=== PATIENT | female | born 1975 | race Caucasian/White ===

== ENCOUNTER 2017-06-05 19:13 | Inpatient (IN) | payer MEDICAID ==
[~2017-06-05] VITALS: Ht 157.5 cm; Wt 88.9 kg
[2017-06-05 23:05] VITALS: BP 108/70
--- NOTE | 2017-06-05 23:05 | NUR ---
RECEIVED REPORT ON PT FROM TRANSPORTERS. PT IN STABLE CONDITION. PT AAOX4, PT ON RA, IV TO L FA 22 G, PATENT AND INTACT INFUSING WELL. SKIN IS INTACT, JUSTICE CATHETER IN PLACE. INITIAL ASSESSMENT COMPLETED. PLAN OF CARE DISCUSSED WITH PT, PT MAINLY SPEAKS HONG KONGER, RESEARCH QUALITY ASSURANCE SPECIALIST USED. PT VERBALIZED UNDERSTANDING. ALL SAFETY PRECAUTIONS MET CALL LIGHT WITHIN REACH, WILL CONTINUE TO MONITOR.
--- NOTE | 2017-06-05 23:30 | NUR ---
DR. CARSON IN TO SEE PT, AT THE BEDSIDE DISCUSSING PLAN OF CARE.
--- NOTE | 2017-06-06 01:30 | NUR ---
CHECKED IN ON PT. PT RESTING COMFORTABLY IN BED. NO S/S OF DISTRESS. CALL LIGHT WITHIN REACH, WILL CONTINUE TO MONITOR.
[2017-06-06] MEDS: PIPERACILLIN/TAZOBACTAM 3.375 GM VIAL IV ONE ×2 (01:36→01:53)
[2017-06-06] MEDS: LACTATED RINGERS 1,000 ML IV SCH ×2 (01:36→09:19)
[2017-06-06] MEDS: PIPER/TAZO 3.375GM/D5W PREMIX 50 ML IV SCH ×4 (01:40→17:01)
--- NOTE | 2017-06-06 03:30 | NUR ---
PT RESTING COMFORTABLY IN BED NO S/S OF DISTRESS NOTED. ALL SAFETY PRECAUTIONS MET, CALL LIGHT WITHIN REACH, WILL CONTINUE TO MONITOR.
[2017-06-06 04:00] VITALS: BP 114/63
--- NOTE | 2017-06-06 04:15 | NUR ---
PT TEMPERATURE TAKEN, PT HAS 100.5 FEVER, PAGED DR. CARSON AWAITING CALL BACK
--- NOTE | 2017-06-06 04:45 | NUR ---
CHECKED IN ON PT, PT RESTING. NO C/O PAIN. ALL SAFETY PRECAUTIONS MET, CALL LIGHT WITHIN REACH, WILL CONTINUE TO MONITOR.
[2017-06-06] MEDS ORDERED: PIPERACILLIN/TAZOBACTAM 3.375 GM VIAL IV ONE (05:42)
[2017-06-06 05:48] LABS: BASOPHILS # (AUTO) 0.1 K/uL (0.00-0.22); BASOPHILS % (AUTO) 0.8 % (0.0-2.0); EOSINOPHILS # (AUTO) 0.3 K/uL (0-0.4); EOSINOPHILS % (AUTO) 1.7 % (0.0-4.0); HEMATOCRIT 32.5 % (36-48); HEMOGLOBIN 10.5 g/dL (12.0-16.0); LYMPHOCYTES % (AUTO) 11.1 % (20.5-51.1); MEAN CORPUSCULAR HEMOGLOBIN 26 pg (27-31); MEAN CORPUSCULAR HGB CONC 32 g/dL (33-37); MEAN CORPUSCULAR VOLUME 80 fL (80-94); MONOCYTES # (AUTO) 1.3 K/uL (0.8-1.0); MONOCYTES % (AUTO) 7.4 % (1.7-9.3); PLATELET COUNT (AUTO) 356 K/uL (140-450); RED BLOOD CELL COUNT(AUTO) 4.09 MIL/uL (4.20-5.40); RED CELL DISTRIBUTION WIDTH 15.3 % (11.6-13.7); WHITE BLOOD COUNT (AUTO) 17.7 K/uL (4.8-10.8)
[2017-06-06] MEDS ORDERED: ACETAMINOPHEN 650 MG/20.3 ML UDC PO PRN (05:55)
--- NOTE | 2017-06-06 05:55 | NUR ---
PAGED AGAIN DR. CARSON THROUGH CELL PHONE ABLE TO MAKE HIM AWARE OF FEVER WITH ORDERS. COOLING MEASURES IN PLACE.
[2017-06-06] MEDS: MORPHINE SULFATE 4 MG/ML SYR IVP PRN ×2 (06:15→13:41)
--- NOTE | 2017-06-06 06:15 | NUR ---
CHECKED IN ON PT. PT STATED SHE IS IN 10/10 PAIN. NEW IV INSERTED ON LEFT HAND 22 G. PREVIOUS IV TO LEFT FA STARTING TO SWELL. PT MEDICATED PER MD ORDERS. ALL SAFETY PRECAUTIONS MET, CALL LIGHT WITHIN REACH.
--- NOTE | 2017-06-06 06:30 | NUR ---
PTS TEMP 99.7 AFTER COOLING MEASURES. WILL CONTINUE TO MONITOR
--- NOTE | 2017-06-06 07:25 | NUR ---
ENDORSED PT IN STABLE CONDITION TO AM NURSE FOR CONTINUITY OF CARE.
--- NOTE | 2017-06-06 07:30 | NUR ---
RECEIVED REPORT FROM PM RN. PT IS A/O X 4. VERBALLY RESPONSIVE. ABLE TO MAKE NEEDS KNOWN. DENIES ANY PAIN OR DISCOMFORT. BILATERAL PERRLA NOTED. PT ON RA SATURATING AT 91%. TOLERATING WELL. SR ON MONITOR. BEDREST. ABLE TO MOVE ALL EXTREMITIES. SKIN IS INTACT. L HAND 22 GAUGE NOTED. INTACT AND PATENT. JUSTICE CATHETER NOTED. DRAINING CLEAR YELLOW URINE. TEMPERATURE AT 99.1 F. CONTINUE COOLING MEASURES. SAFETY PRECAUTION MAINTAINED. BED AT LOWEST SETTING. CALL LIGHT WITHIN REACH. WILL CONTINUE TO MONITOR.
[2017-06-06 08:00] VITALS: BP 103/61
--- NOTE | 2017-06-06 10:00 | NUR ---
PT SLEEPING. AWAKEN TO NAME. A/O X4. VERBALLY RESPONSIVE. DENIES ANY PAIN OR DISCOMFORT. WILL CONTINUE TO MONITOR.
--- NOTE | 2017-06-06 11:23 | NUR ---
PATIENT HAS BEEN SCREENED AND CATEGORIZED HIGH NUTRITION RISK. PATIENT WILL BE SEEN WITHIN 1-2 DAYS OF ADMISSION. 06/06/17-06/07/[address]
--- NOTE | 2017-06-06 11:33 | NUR ---
NOTED TO HAVE MILD FEVER OF 99.4 F. WILL CONTINUE WITH COOLING MEASURES.
[2017-06-06 12:00] VITALS: BP 120/55
[2017-06-06 13:05] LABS: ANION GAP 12.6 (8-16); CARBON DIOXIDE 24.9 mmol/L (21-32); CREATININE 0.5 mg/dL (0.6-1.3); POTASSIUM 3.5 mmol/L (3.5-5.1)
[2017-06-06] MEDS: ACETAMINOPHEN 325 MG TAB PO PRN ×2 (13:07→21:04)
--- NOTE | 2017-06-06 13:07 | NUR ---
PT IS ALERT AND ORIENTED X4. C/O MILD HEADACHE. ORAL TEMPERATURE IS NOW 99.7. PRN TYLENOL ADMINISTERED. TOLERATED WELL. WILL CONTINUE TO MONITOR.
[2017-06-06] MEDS: ALBUTEROL SULFATE/IPRATROPIU 3 ML SOL IH SCH ×3 (15:18→23:18)
--- NOTE | 2017-06-06 15:24 | NUR ---
06/06/17 RD INITIAL ASSESSMENT COMPLETED PLEASE REFER TO NUTRITION ASSESSMENT UNDER CARE ACTIVITY FOR ESTIMATED NUTRITIONAL NEEDS. 1. WHEN MEDICALLY FEASIBLE, INITIATE PO DIET TO START ON CLEAR LIQUID DIET AND ADVANCE TOLERATED TO REGULAR DIET. 2. RD TO FOLLOW UP WITHIN 2-3 DAYS, HIGH RISK FATUMA BOND RD
--- NOTE | 2017-06-06 15:28 | NUR ---
PLACED PT ON 2LNC DUE TO LOW O2 SAT OF 88% BEFORE BREATHING TX AND RN TUNG NOTIFIED
[2017-06-06 16:00] VITALS: BP 108/66
[2017-06-06 16:18] LABS: PROTHROMBIN TIME 11.3 secs (10.8-13.4)
--- NOTE | 2017-06-06 16:45 | NUR ---
DR. MOLINA AND DR. ANDRADE NOTIFIED OF DR. EDMONDS'S ORDER OF HEPARIN. PER MD, WILL DECIDE AFTER REVIEWING CHART AND CT RESULT
[2017-06-06] MEDS ORDERED: NACL 0.9% 1,000 ML IV SCH (16:50)
[2017-06-06 17:03] LABS: APPEARANCE,URINE CLEAR (CLEAR); BILIRUBIN,URINE NEGATIVE (NEGATIVE); BLOOD, URINE 2+ (NEGATIVE); COLOR,URINE YELLOW (YELLOW); LEUKOCYTE ESTERASE ,URINE NEGATIVE (NEGATIVE); NITRITE, URINE NEGATIVE (NEGATIVE); UGLUCOSE NEGATIVE (NEGATIVE)
[2017-06-06 17:11] LABS: BARBITURATE, URINE NEG. ng/ml (NEG <=200); BENZODIAZEPINE, URINE NEG. ng/mL (NEG <=200); CANNABINOID, URINE NEG. ng/mL (NEG <=50); COCAINE, URINE NEG. ng/mL (NEG <=300); OPIATE, URINE POS. ng/mL (NEG <=2000); PHENCYCLIDINE SCREEN,URINE NEG. ng/mL (NEG <=25)
[2017-06-06 17:13] LABS: WBC,URINE 0-5 /HPF (0-5)
[2017-06-06] MEDS ORDERED: NACL 0.9% 3,000 ML IV ONE (17:15)
[2017-06-06] MEDS ORDERED: NACL 0.9% 2,000 ML IV ONE (17:20)
[2017-06-06 17:32] LABS: BASOPHILS # (AUTO) 0.4 K/uL (0.00-0.22); EOSINOPHILS # (AUTO) 0.3 K/uL (0-0.4); HEMATOCRIT 34.5 % (36-48); HEMOGLOBIN 10.8 g/dL (12.0-16.0); LYMPHOCYTES # (AUTO) 0.9 K/uL (2.5-16.5); MEAN CORPUSCULAR HEMOGLOBIN 25 pg (27-31); MEAN CORPUSCULAR HGB CONC 31 g/dL (33-37); MEAN CORPUSCULAR VOLUME 80 fL (80-94); MONOCYTES # (AUTO) 0.9 K/uL (0.8-1.0); NEUTROPHILS # (AUTO) 14.1 K/uL (1.8-7.7); PLATELET COUNT (AUTO) 386 K/uL (140-450); RED BLOOD CELL COUNT(AUTO) 4.32 MIL/uL (4.20-5.40); RED CELL DISTRIBUTION WIDTH 15.2 % (11.6-13.7); WHITE BLOOD COUNT (AUTO) 16.6 K/uL (4.8-10.8)
[2017-06-06 18:01] LABS: CHOL/HDL RATIO 4.3 (1-4.5); FREE T4 (FREE THYROXINE) 1.16 ng/dL (0.76-1.46); MAGNESIUM 1.7 mg/dL (1.8-2.4); PHOSPHORUS 3.5 mg/dL (2.5-4.9); THYROID STIMULATING HORMONE 1.69 uIU/mL (0.34-3.74)
[2017-06-06] MEDS ORDERED: FERRIC GLUCONATE 125 MG in NACL 0.9% 100 ML IV SCH (18:23)
[2017-06-06] MEDS ORDERED: FERRIC GLUCONATE 62.5 MG/5 ML AMP IV ONE (18:51)
--- NOTE | 2017-06-06 19:25 | NUR ---
RECEIVED REPORT FROM DAY RN FOR CONTINUITY OF CARE. PATIENT IS ALERT AND ORIENTED X4, DISCUSSED PLAN OF CARE WITH PATIENT, VERBALIZED UNDERSTANDING. NO RESPIRATORY DISTRESS NOTED ON 2L NC, O2 SAT 99%. PATIENT DENIES PAIN AT THIS TIME. SHIFT ASSESSMENT DONE, VITAL SIGNS STABLE. IV TO RT AC PATENT AND INFUSING FLUIDS WELL. IV TO LT HAND REMOVED DUE TO LEAKING. JUSTICE CATHETER IN PLACE DRAINING CLEAR YELLOW URINE TO GRAVITY. SAFETY MEASURES ENFORCED, CALL LIGHT WITHIN REACH. WILL CONTINUE TO MONITOR.
[2017-06-06 20:00] VITALS: BP 108/65
[2017-06-06] MEDS: DOCUSATE SODIUM 100 MG GELCAP PO SCH (20:57)
[2017-06-06] MEDS: FAMOTIDINE 20 MG/2 ML VIAL IV SCH (20:57)
--- NOTE | 2017-06-06 20:57 | NUR ---
DUE MEDICATIONS ADMINISTERED, TOLERATED WELL. PATIENT C/O HEADACHE, WILL MEDICATE PER MD ORDER. CALL LIGHT WITHIN REACH.
--- NOTE | 2017-06-06 22:15 | NUR ---
PATIENT ASLEEP AT THIS TIME, NO DISTRESS OR DISCOMFORT NOTED. CALL LIGHT WITHIN REACH, WILL CONTINUE TO MONITOR.
[2017-06-07] VITALS (7 sets, daily range): BP systolic 100–133; BP diastolic 59–84
[2017-06-07] MEDS ORDERED: PIPER/TAZO 3.375GM/D5W PREMIX 50 ML IV SCH
[2017-06-07] MEDS ORDERED: MAGNESIUM OXIDE 400 MG TAB PO SCH
[2017-06-07] MEDS: PIPER/TAZO 3.375GM/D5W PREMIX 50 ML IV SCH ×5 (00:30→23:18)
--- NOTE | 2017-06-07 00:30 | NUR ---
DUE MEDICATIONS ADMINISTERED, TOLERATED WELL. VITAL SIGNS STABLE, NO DISTRESS OR DISCOMFORT NOTED. WILL CONTINUE TO MONITOR.
[2017-06-07] MEDS: LACTATED RINGERS 1,000 ML IV SCH (01:01)
--- NOTE | 2017-06-07 02:10 | NUR ---
EMPTIED JUSTICE CATHETER [address] ML JUAN MANUEL COLORED URINE NOTED, PATIENT SLEEPING AT THIS TIME, NO DISCOMFORT NOTED. CALL LIGHT WITHIN REACH, WILL CONTINUE TO MONITOR.
[2017-06-07] MEDS: ALBUTEROL SULFATE/IPRATROPIU 3 ML SOL IH SCH ×6 (03:06→23:20)
[2017-06-07] MEDS: HYDROcodone/APAP 7.5/325 MG 1 TAB PO PRN (04:30)
[2017-06-07] MEDS: ACETAMINOPHEN 325 MG TAB PO PRN (04:30)
--- NOTE | 2017-06-07 04:30 | NUR ---
VITAL SIGNS TAKEN, STABLE. PATIENT MEDICATED FOR PAIN PER MD ORDER. SPOKE TO DR. MACK REGARDING IVF ORDERS.
[2017-06-07 05:54] LABS: BASOPHILS # (AUTO) 0.1 K/uL (0.00-0.22); EOSINOPHILS # (AUTO) 0.3 K/uL (0-0.4); EOSINOPHILS % (AUTO) 2.2 % (0.0-4.0); HEMATOCRIT 30.4 % (36-48); HEMOGLOBIN 9.7 g/dL (12.0-16.0); LYMPHOCYTES # (AUTO) 1.4 K/uL (2.5-16.5); LYMPHOCYTES % (AUTO) 10.4 % (20.5-51.1); MEAN CORPUSCULAR HEMOGLOBIN 25 pg (27-31); MEAN CORPUSCULAR HGB CONC 32 g/dL (33-37); MEAN CORPUSCULAR VOLUME 79 fL (80-94); MONOCYTES % (AUTO) 7.4 % (1.7-9.3); PLATELET COUNT (AUTO) 364 K/uL (140-450); RED BLOOD CELL COUNT(AUTO) 3.83 MIL/uL (4.20-5.40); RED CELL DISTRIBUTION WIDTH 15.4 % (11.6-13.7); WHITE BLOOD COUNT (AUTO) 13.8 K/uL (4.8-10.8)
--- NOTE | 2017-06-07 06:00 | NUR ---
DR. MOLINA IN TO SEE PATIENT. PATIENT IN BED NO DISTRESS OR DISCOMFORT NOTED. CALL LIGHT WITHIN REACH.
[2017-06-07 06:13] LABS: ANION GAP 13.3 (8-16); CARBON DIOXIDE 24.1 mmol/L (21-32); CREATININE 0.5 mg/dL (0.6-1.3); POTASSIUM 3.4 mmol/L (3.5-5.1)
[2017-06-07 06:19] LABS: MAGNESIUM 1.7 mg/dL (1.8-2.4); PHOSPHORUS 3.7 mg/dL (2.5-4.9)
--- NOTE | 2017-06-07 06:58 | NUR ---
DR Kitty CARSON IN TO SEE PATIENT, EXPLAINED TO PATIENT ABOUT POSSIBLE TRANSFER FOR SURGERY.
--- NOTE | 2017-06-07 07:25 | NUR ---
ENDORSED PATIENT TO DAY RN FOR CONTINUITY OF CARE, PATIENT IS IN STABLE CONDITION.
--- NOTE | 2017-06-07 07:25 | NUR ---
RECEIVED REPORT FROM COLLECTIONS AND ARCHIVES DIRECTOR NURSE. PATIENT AWAKE, ON 3L NC. NO SIGNS AND SYMPTOMS OF DISTRESS NOTED AT THIS TIME.
--- NOTE | 2017-06-07 07:34 | NUR ---
AWAKE AND ALERT RESPONSIVE TO ACCOUNTING SYSTEMS ANALYST VERBAL COMMANDS TOLERATED INCENTIVE SPIROMETRY THERAPY WELL WITHOUT INCIDENT ENCOURAGED PATIENT WITH ACKNOWLEDGEMENT TO USE INCENTIVE SPIROMETRY EVERY 1-2 HOURS WHILE AWAKE
--- NOTE | 2017-06-07 08:20 | NUR ---
PATIENT VOMITED, COMPLAINING OF SOME NAUSEA. WILL GIVE ZOFRAN ORDERED.
[2017-06-07] MEDS: ONDANSETRON 4 MG/2 ML VIAL IVP PRN ×2 (08:26→15:24)
[2017-06-07] MEDS: DOCUSATE SODIUM 100 MG GELCAP PO SCH ×2 (08:32→20:31)
[2017-06-07] MEDS: PANTOPRAZOLE 40 MG INJ VIAL IVP SCH (09:23)
[2017-06-07] MEDS: FAMOTIDINE 20 MG/2 ML VIAL IV SCH ×2 (09:24→20:30)
--- NOTE | 2017-06-07 13:00 | NUR ---
PT SEEN BY DR. Stan GOLDSMITH. NO NEW ORDERS.
--- NOTE | 2017-06-07 14:00 | NUR ---
DR. OSCAR CALLED AND MADE HIM AWARE REGARDING DR. Kitty CARSON'S PROGRESS NOTES FOR TODAY. NO NEW ORDERS GIVEN. DR. OSCAR ASKED TO BE CONNECTED TO DR. YORK' RESIDENT IN CHARGE.
--- NOTE | 2017-06-07 14:30 | NUR ---
PATIENT TOLERATING FULL LIQUIDS WELL.
[2017-06-07] MEDS: MORPHINE SULFATE 4 MG/ML SYR IVP PRN ×2 (15:22→23:18)
--- NOTE | 2017-06-07 18:45 | NUR ---
PATIENT COMPLAINING OF ANXIETY, PAGED DR. MACK AT [phone] OF PATIENTS ANXIETY. WAITING FOR CALL BACK. ENDORSED TO PAMPHLET DISTRIBUTOR RN.
--- NOTE | 2017-06-07 19:15 | NUR ---
ENDORSED PATIENT TO ARCHIVIST RN, PATIENT AWAKE AND ALERT. NO SIGNS AND SYMPTOMS OF DISTRESS NOTED AT THIS TIME.
--- NOTE | 2017-06-07 19:53 | NUR ---
RECEIVED FROM AM RN IN BED SITTING UP AND WATCHING TV. NO COMPLAINTS DONE. TELEMETRY MONITORING. CALL LIGHT WITH IN REACH AND CARE PLANS FOR THE NIGHT DISCUSSED WITH HER. PT. ABLE TO VERBALIZE NEEDS WELL. TELEMETRY MONITORING. DX. OF LEUKOCYTOSIS AND FIBROID IN UTERUS. NO PAIN COMPLAINTS AT THIS TIME.
[2017-06-07] MEDS: LACTULOSE 20 GM/30 ML UDC PO SCH (20:31)
--- NOTE | 2017-06-07 20:40 | NUR ---
PT. WITH VISITORS AT THIS TIME. TOLERATED ALL MEDICATIONS GIVEN. PT. VERBALIZING WELL AND STATED THAT SHE CAN UNDERSTAND [place]. CALL LIGHT WITH IN REACH. TELEMETRY MONITORING.
--- NOTE | 2017-06-07 23:24 | NUR ---
ASSISTED TO RESTROOM . NO BM AT THIS TIME. SHE STATED IT IS ALL GAS. REQUESTED FOR PAIN RELIEVER . MEDICATED REQUESTED FOR ABDOMINAL PAIN COMPLAINT. "07/17 " PER PT. PT. WITH BRETHING TREATMENT AT THIS TIME TOO. USES CALL LIGHT FOR HELP.
--- NOTE | 2017-06-08 00:23 | NUR ---
SLEEPING AT THIS TIME. NO RESTLESSNESS NOTED. TELEMETRY MONITORING. CALL LIGHT WITH IN REACH . RESIDENT OHDENAE TOOK OUT A STAPLE FROM HEAD EARLIER. TOLERATED WELL. Addendum: 06/08/17 at 0025 by Shelley Patel RN ABOVE CHARTING ERROR.
--- NOTE | 2017-06-08 00:25 | NUR ---
PT. SLEEPING AT THIS TIME. TOOK VITAL SIGNS. AFEBRILE. NO COMPLAINTS DONE. CALL LIGHT WITH IN REACH AT ALL TIMES.
--- NOTE | 2017-06-08 02:00 | NUR ---
SLEEPING. NO RESTLESSNESS AT THIS TIME.
[2017-06-08] MEDS: ALBUTEROL SULFATE/IPRATROPIU 3 ML SOL IH SCH ×6 (02:38→23:44)
[2017-06-08] MEDS: PIPER/TAZO 3.375GM/D5W PREMIX 50 ML IV SCH ×3 (05:22→17:51)
[2017-06-08 05:48] VITALS: BP 108/68
[2017-06-08 05:55] LABS: BASOPHILS # (AUTO) 0.1 K/uL (0.00-0.22); BASOPHILS % (AUTO) 0.8 % (0.0-2.0); EOSINOPHILS # (AUTO) 0.5 K/uL (0-0.4); HEMATOCRIT 28.7 % (36-48); HEMOGLOBIN 9.2 g/dL (12.0-16.0); LYMPHOCYTES # (AUTO) 1.7 K/uL (2.5-16.5); LYMPHOCYTES % (AUTO) 13.6 % (20.5-51.1); MEAN CORPUSCULAR HEMOGLOBIN 25 pg (27-31); MEAN CORPUSCULAR HGB CONC 32 g/dL (33-37); MEAN CORPUSCULAR VOLUME 79 fL (80-94); MONOCYTES # (AUTO) 0.8 K/uL (0.8-1.0); MONOCYTES % (AUTO) 6.9 % (1.7-9.3); NEUTROPHILS # (AUTO) 9.2 K/uL (1.8-7.7); NEUTROPHILS % (AUTO) 74.7 % (42.2-75.2); PLATELET COUNT (AUTO) 405 K/uL (140-450); RED BLOOD CELL COUNT(AUTO) 3.62 MIL/uL (4.20-5.40); RED CELL DISTRIBUTION WIDTH 15.4 % (11.6-13.7); WHITE BLOOD COUNT (AUTO) 12.3 K/uL (4.8-10.8)
[2017-06-08 06:22] LABS: MAGNESIUM 1.9 mg/dL (1.8-2.4); PHOSPHORUS 3.6 mg/dL (2.5-4.9)
--- NOTE | 2017-06-08 06:23 | NUR ---
PT. SLEPT WELL THIS SHIFT. HAD A SMALL PIECE OF BM. NO COMPLAINTS DONE.
[2017-06-08 06:38] LABS: ANION GAP 10.7 (8-16); CARBON DIOXIDE 26.9 mmol/L (21-32); CREATININE 0.5 mg/dL (0.6-1.3); POTASSIUM 3.6 mmol/L (3.5-5.1)
--- NOTE | 2017-06-08 07:28 | NUR ---
REPORT RECEIVED FROM WELDER APPRENTICE GAS NURSE, PT RESTING WITH EYES CLOSED, AROUSED EASILY, RESP EVEN UNLABORED, SKIN WARM DRY COLOR WNL, PT ON GARBAGE WORKER, PT DENIES PAIN OR DISCOMFORT, JUSTICE DRAINING CLEAR DARK YELLOW URINE, ABD SOFT, PLAN OF CARE DISCUSSED, PT VOICES NO IMMEDIATE NEEDS, SAFETY MEASURES IN PLACE, WILL CONTINUE TO MONITOR.
[2017-06-08 08:00] VITALS: BP 104/60
[2017-06-08] MEDS: PANTOPRAZOLE 40 MG INJ VIAL IVP SCH (08:27)
[2017-06-08] MEDS: DOCUSATE SODIUM 100 MG GELCAP PO SCH ×2 (08:28→20:58)
[2017-06-08] MEDS: LACTULOSE 20 GM/30 ML UDC PO SCH ×2 (08:28→20:57)
[2017-06-08] MEDS: FAMOTIDINE 20 MG/2 ML VIAL IV SCH ×2 (08:28→20:54)
[2017-06-08] MEDS: ACETAMINOPHEN 325 MG TAB PO PRN ×3 (08:39→20:54)
--- NOTE | 2017-06-08 08:39 | NUR ---
PT C/O SAWANT 03/17, MEDICATED WITH TYLENOL AT THIS TIME, ROOM DARKENED, TV TURNED OFF, PILLOWS POSITIONED FOR COMFORT, WILL CONTINUE TO MONITOR.
--- NOTE | 2017-06-08 11:05 | NUR ---
JUSTICE CATH REMOVED, 15ML WATER REMOVED FROM BALLOON, CATH TIP INTACT, PT KELLY WELL, 40ML DARK YELLOW URINE COLLECTED.
--- NOTE | 2017-06-08 11:55 | NUR ---
PT SITTING UP EATING LUNCH, PT DENIES N/V THIS AM, IV ANTIBIOTIC INFUSING, IV SITE CLEAR, VSS, CALL URIAS WITHIN REACH, SIDE RAILS UP, PT AWARE TO NOTIFY STAFF WHEN SHE NEEDS TO GET UP FOR BATHROOM TO VOID, WILL CONTINUE TO MONITOR.
[2017-06-08 12:00] VITALS: BP 105/60
--- NOTE | 2017-06-08 13:02 | NUR ---
PT KELLY LUNCH WELL, DENIES NAUSEA OR VOMITING, PT UP OUT OF BED WITH STEADY GAIT TO BATHROOM, REPORTS VOIDING WITHOUT PROBLEM, PT DENIES PAIN OR DISCOMFORT, DENIES ANY IMMEDIATE NEEDS, WILL CONTINUE TO MONITOR.
--- NOTE | 2017-06-08 14:00 | NUR ---
06/08/17 RD FOLLOW-UP ASSESSMENT COMPLETED PLEASE REFER TO NUTRITION ASSESSMENT UNDER CARE ACTIVITY FOR ESTIMATED NUTRITIONAL NEEDS. 1. CONTINUE CARDIAC DIET 2. RD TO FOLLOW-UP 3-5 DAYS, MODERATE RISK FATUMA BOND RD
[2017-06-08 16:00] VITALS: BP 97/57
--- NOTE | 2017-06-08 16:33 | NUR ---
PT REPORTS SAWANT DECREASED SLIHGTLY, PT RESTING QUIETLY IN NAD, RESP EVEN UNLABORED, SKIN WARM DRY COLOR WNL, PT DENIES ANY IMMEDIATE NEEDS, WILL CONTINUE TO MONITOR.
[2017-06-08] MEDS ORDERED: FLUCONAZOLE 100 MG TAB PO SCH (16:45)
[2017-06-08] MEDS ORDERED: BACLOFEN 10 MG TAB PO PRN (17:10)
[2017-06-08] MEDS: FERROUS SULFATE 325 MG TABEC PO SCH (17:49)
--- NOTE | 2017-06-08 18:35 | NUR ---
PT SITTING UP EATING DINNER IN NAD, IV ANTIBIOTIC INFUSING, IV SITE WNL, PT NEEDS CONSTANT REMINDER TO KEEP ARM STRAIGHT, SAFETY MEASURE IN PLACE, WILL CONTINUE TO MONITOR.
--- NOTE | 2017-06-08 19:19 | NUR ---
REPORT GIVEN TO SOLDER SPRAYER NURSE, PT IN STABLE CONDITION.
--- NOTE | 2017-06-08 19:30 | NUR ---
RECEIVED REPORT FROM AM NURSE. PT RESTING IN BED, AOX4, ABLE TO VERBALIZE NEEDS. PT DENIES CHEST PAIN, SOB OR S/S OF ACUTE DISTRESS. PT C/O HEADACHE, SEE PAIN ASSESSMENT, WILL ADMINISTER PAIN MEDS ORDERED. O2 2L NC IN PLACE. SYSTEMS PROGRAM MANAGER IN PLACE. IV ACCESS ASYMPTOMATIC, PATENT AND INTACT. IVF INFUSING WELL. DISCUSSED AND REVIEWED PLAN OF CARE WITH PT. PT VERBALIZED UNDERSTANDING. ALL NEEDS MET. SAFETY MEASURES ENSURED. CALL LIGHT WITHIN REACH. WILL CONTINUE TO MONITOR.
[2017-06-08 20:00] VITALS: BP 97/51
--- NOTE | 2017-06-08 21:04 | NUR ---
PT REFUSED DUE MEDS COLACE AND LACTULOSE DESPITE EDUCATION, PT STATED NO PROBLEMS WITH CONSTIPATION. ADMINISTERED REMAINING DUE MEDS WITH EDUCATION. PT C/O HEADACHE. SEE PAIN ASSESSMENT. ADMINISTERED TYLENOL PO PRN ORDERED. PT VERBALIZED UNDERSTANDING, TOLERATED MEDS WELL. ALL NEEDS MET. SAFETY MEASURE ENSURED. CALL LIGHT WITHIN REACH. WILL CONTINUE TO MONITOR.
[2017-06-09] VITALS (7 sets, daily range): BP systolic 102–109; BP diastolic 51–72
[2017-06-09] MEDS: PIPER/TAZO 3.375GM/D5W PREMIX 50 ML IV SCH ×5 (00:15→23:52)
[2017-06-09] MEDS: HYDROcodone/APAP 7.5/325 MG 1 TAB PO PRN (00:21)
--- NOTE | 2017-06-09 00:30 | NUR ---
PT C/O PAIN. SEE PAIN ASSESSMENT. ADMINISTERED PAIN MED ORDERED. ADMINISTERED DUE MED WITH EDUCATION. PT VERBALIZED UNDERSTANDING, TOLERATED MEDS WELL. IVPB INFUSING WELL. ASSISTED PT TO RESTROOM, PT ABLE TO AMBULATE WITH STANDBY ASSIST ALL NEEDS MET. SAFETY MEASURES ENSURED. CALL LIGHT WITHIN REACH. WILL CONTINUE TO MONITOR.
[2017-06-09] MEDS: ALBUTEROL SULFATE/IPRATROPIU 3 ML SOL IH SCH ×6 (03:05→23:04)
--- NOTE | 2017-06-09 04:15 | NUR ---
PT SLEEPING COMFORTABLY. IVF INFUSING WELL. ALL NEEDS MET. SAFETY MEASURES ENSURED. CALL LIGHT WITHIN REACH. WILL CONTINUE TO MONITOR.
[2017-06-09 06:49] LABS: BASOPHILS # (AUTO) 0.1 K/uL (0.00-0.22); BASOPHILS % (AUTO) 0.6 % (0.0-2.0); EOSINOPHILS # (AUTO) 0.3 K/uL (0-0.4); EOSINOPHILS % (AUTO) 2.8 % (0.0-4.0); HEMATOCRIT 29.7 % (36-48); HEMOGLOBIN 9.4 g/dL (12.0-16.0); LYMPHOCYTES % (AUTO) 17.8 % (20.5-51.1); MEAN CORPUSCULAR HEMOGLOBIN 26 pg (27-31); MEAN CORPUSCULAR HGB CONC 32 g/dL (33-37); MEAN CORPUSCULAR VOLUME 80 fL (80-94); MONOCYTES # (AUTO) 0.8 K/uL (0.8-1.0); MONOCYTES % (AUTO) 7.4 % (1.7-9.3); NEUTROPHILS # (AUTO) 8.1 K/uL (1.8-7.7); NEUTROPHILS % (AUTO) 71.4 % (42.2-75.2); PLATELET COUNT (AUTO) 410 K/uL (140-450); RED BLOOD CELL COUNT(AUTO) 3.69 MIL/uL (4.20-5.40); RED CELL DISTRIBUTION WIDTH 15.3 % (11.6-13.7); WHITE BLOOD COUNT (AUTO) 11.3 K/uL (4.8-10.8)
[2017-06-09 07:09] LABS: ANION GAP 10.3 (8-16); CREATININE 0.5 mg/dL (0.6-1.3); POTASSIUM 3.3 mmol/L (3.5-5.1)
--- NOTE | 2017-06-09 07:15 | NUR ---
ENDORSED PLAN OF CARE TO AM NURSE. CONDITION STABLE.
--- NOTE | 2017-06-09 07:20 | NUR ---
RECEIVED REPORT FROM PM NURSE FOR CONTINUITY OF CARE. PT AAO. PT DENIES PAIN OR DISCOMFORT. RESP EVEN AND UNLABORED. IV INTACT, NO REDNESS OR SWELLING NOTED. NO S/S OF DISTRESS, RESTLESSNESS OR SOB. SKIN IS WARM AND INTACT. DISCUSSED PLAN OF CARE WITH PATIENT. PT VERBALIZED UNDERSTANDING. SAFETY MEASURES IN PLACED. SIDE RAILS UP, BED LOCKED IN LOW POSITION, CALL LIGHT WITHIN REACH. WILL CONTINUE TO MONITOR.
[2017-06-09 07:21] LABS: PROTHROMBIN TIME 10.2 secs (10.8-13.4)
[2017-06-09] MEDS: FERROUS SULFATE 325 MG TABEC PO SCH ×2 (08:11→17:10)
[2017-06-09] MEDS: FAMOTIDINE 20 MG/2 ML VIAL IV SCH ×2 (08:12→21:04)
[2017-06-09] MEDS: DOCUSATE SODIUM 100 MG GELCAP PO SCH ×2 (08:14→21:05)
[2017-06-09] MEDS: PANTOPRAZOLE 40 MG INJ VIAL IVP SCH (08:14)
[2017-06-09] MEDS: ASCORBIC ACID 500 MG TAB PO SCH (08:14)
[2017-06-09] MEDS: LACTULOSE 20 GM/30 ML UDC PO SCH ×2 (08:15→21:04)
[2017-06-09] MEDS: ACETAMINOPHEN 325 MG TAB PO PRN (08:58)
[2017-06-09] MEDS: MORPHINE SULFATE 4 MG/ML SYR IVP PRN ×2 (10:09→17:11)
--- NOTE | 2017-06-09 10:15 | NUR ---
PT STATED HEAD PAIN 07/17 . SHE STATED THAT TYLENOL DID NOT WORK, AND STILL IN A LOT OF PAIN. ADMINISTERED MORPHINE PER MD'S ORDER. SAFETY MEASURES IN PLACED. WILL CONTINUE TO MONITOR.
--- NOTE | 2017-06-09 10:45 | NUR ---
PT SLEEPING QUIETLY NUT EASILY AROUSABLE. DENIES PAIN OR DISCOMFORT. RESP EVEN AND UNLABORED. NO S/S OF DISTRESS, SOB, RESTLESSNESS. SAFETY MEASURES IN PLACED. WILL CONTINUE TO MONITOR.
--- NOTE | 2017-06-09 12:45 | NUR ---
SERVICE CREW LEADER MANI NOTIFIED OF SS REQUEST ORDER FOR TRANSFER TO HIGHER LEVEL OF CARE, MANI CALLING INTERNAL REVIEW AND AUDIT COMPLIANCE.
--- NOTE | 2017-06-09 13:05 | NUR ---
INFORMED RESIDENTS TO CALL [facility] PER MORTGAGE LOAN UNDERWRITER PER ELIER FOR TRANSFER.
--- NOTE | 2017-06-09 14:25 | NUR ---
PT RESTING QUIETLY. NO S/S OF DISTRESS, RESTLESSNESS, OR SOB. DENIES PAIN OF DISCOMFORT. SAFETY MEASURES IN PLACED. WILL CONTINUE TO MONITOR.
--- NOTE | 2017-06-09 17:46 | NUR ---
PT IN BED WATCHING TV. PT DENIES PAIN OR DISCOMFORT. NO S/S OF DISTRESS, RESTLESSNESS OR SOB. SAFETY MEASURES IN PLACED. SIDE RAILS UP, BED LOCKED IN LOW POSITION, CALL LIGHT WITHIN REACH. WILL CONTINUE TO MONITOR.
--- NOTE | 2017-06-09 18:01 | NUR ---
DR VILLALOBOS AT BEDSIDE.
--- NOTE | 2017-06-09 18:30 | NUR ---
CALLED [facility] AND SPOKE TO JOSE MARTIN SHE SAID TO FAX FACESHEET AND SOME INFO OF THE PATIENT. SHE WILL CALL THE FLOOR EXT. [phone] IF THEY HAVE BED. ENDORSED TO CAROLYNN, CHARGE NURSE.
--- NOTE | 2017-06-09 19:24 | NUR ---
ENDORSED CARE TO PM NURSE FOR CONTINUITY OF CARE. PT IS IN STABLE CONDITION.
--- NOTE | 2017-06-09 19:30 | NUR ---
RECEIVED PT IN STABLE CONDITION FROM AM NURSE. ON TELE MONITOR. AWAKE,ALERT AND ORIENTED X4. WITH NO C/O ANY ANY PAIN AT THIS TIME. HAS IV ACCESS ON THE RT AC#20. CLEAR AND PATENT. STILL FINISHING DINNER. PLAN OF CARE DISCUSSED AND VERBALIZED UNDERSTANDING. CALL LIGHT PLACED WITHIN EASY REACH. WILL CONTINUE TO MONITOR.
--- NOTE | 2017-06-09 20:30 | NUR ---
AMBULATED TO THE HALLWAY WITH FAMILY. TOLERATED WELL.
--- NOTE | 2017-06-09 21:30 | NUR ---
US BREAST DONE AT BEDSIDE. WILL FOLLOW UP RESULT.
--- NOTE | 2017-06-09 22:00 | NUR ---
SLEEPING AT THIS TIME. NO S/S OF ANY DISCOMFORT.
[2017-06-09] MEDS ORDERED: KCL 20 MEQ/WATER INJ PREMIX 100 ML IV SCH (22:15)
--- NOTE | 2017-06-10 00:57 | NUR ---
K LEVEL 3.3 , K CL RIDER 20 MEQ IV STARTED PER ORDER. WILL CONTINUE TO MONITOR.
[2017-06-10] MEDS: MORPHINE SULFATE 4 MG/ML SYR IVP PRN (02:17)
[2017-06-10] MEDS ORDERED: POTASSIUM CHLORIDE 10 MEQ TABER PO SCH (03:45)
--- NOTE | 2017-06-10 03:45 | NUR ---
PT CRYING C/O TOO MUCH PAIN ON LT ARM DUE TO K RIDER STILL WITH 36ML REMAINING. KRIDER STOPPED. DR. BLOCK, MADE AWARE. WITH NEW ORDER. TO GIVE 10 MG K DUR X 1.
[2017-06-10] MEDS: ALBUTEROL SULFATE/IPRATROPIU 3 ML SOL IH SCH ×5 (04:22→19:13)
[2017-06-10 04:35] VITALS: BP 100/64
--- NOTE | 2017-06-10 04:38 | NUR ---
K DUR 10 MED PO GIVEN PER MD ORDER.
[2017-06-10] MEDS: PIPER/TAZO 3.375GM/D5W PREMIX 50 ML IV SCH ×3 (05:33→17:54)
--- NOTE | 2017-06-10 06:40 | NUR ---
RT AT BEDSIDE FOR BREATHING TREATMENTS.
--- NOTE | 2017-06-10 07:10 | NUR ---
ENDORSED PT IN STABLE CONDITION TO AM NURSE.
--- NOTE | 2017-06-10 07:11 | NUR ---
RECEIVED REPORT FROM PM NURSE FOR CONTINUITY OF CARE. PT AAO. PT SLEEPING BUT EASILY AROUSABLE. RESP EVEN AND UNLABORED. IV INTACT, NO REDNESS OR SWELLING NOTED. NO S/S OF DISTRESS, RESTLESSNESS OR SOB. SKIN IS WARM AND INTACT. DISCUSSED PLAN OF CARE WITH PATIENT. PT VERBALIZED UNDERSTANDING. SAFETY MEASURES IN PLACED. SIDE RAILS UP, BED LOCKED IN LOW POSITION, CALL LIGHT WITHIN REACH. WILL CONTINUE TO MONITOR.
[2017-06-10 08:00] VITALS: BP 104/58
[2017-06-10] MEDS: PANTOPRAZOLE 40 MG INJ VIAL IVP SCH (08:52)
[2017-06-10] MEDS: ASCORBIC ACID 500 MG TAB PO SCH (08:52)
[2017-06-10] MEDS: FAMOTIDINE 20 MG/2 ML VIAL IV SCH ×2 (08:52→21:00)
[2017-06-10] MEDS: FERROUS SULFATE 325 MG TABEC PO SCH ×2 (08:52→17:54)
[2017-06-10] MEDS: DOCUSATE SODIUM 100 MG GELCAP PO SCH ×2 (09:00→21:00)
[2017-06-10] MEDS: LACTULOSE 20 GM/30 ML UDC PO SCH ×2 (09:00→21:00)
[2017-06-10 09:43] LABS: BASOPHILS # (AUTO) 0.1 K/uL (0.00-0.22); BASOPHILS % (AUTO) 0.7 % (0.0-2.0); EOSINOPHILS # (AUTO) 0.3 K/uL (0-0.4); EOSINOPHILS % (AUTO) 2.5 % (0.0-4.0); HEMATOCRIT 31.1 % (36-48); HEMOGLOBIN 10.1 g/dL (12.0-16.0); LYMPHOCYTES # (AUTO) 1.6 K/uL (2.5-16.5); MEAN CORPUSCULAR HEMOGLOBIN 26 pg (27-31); MEAN CORPUSCULAR HGB CONC 32 g/dL (33-37); MEAN CORPUSCULAR VOLUME 79 fL (80-94); MONOCYTES % (AUTO) 7.8 % (1.7-9.3); NEUTROPHILS # (AUTO) 9.5 K/uL (1.8-7.7); PLATELET COUNT (AUTO) 463 K/uL (140-450); RED BLOOD CELL COUNT(AUTO) 3.92 MIL/uL (4.20-5.40); RED CELL DISTRIBUTION WIDTH 15.4 % (11.6-13.7); WHITE BLOOD COUNT (AUTO) 12.5 K/uL (4.8-10.8)
[2017-06-10 09:56] LABS: ANION GAP 8.6 (8-16); CREATININE 0.5 mg/dL (0.6-1.3); PHOSPHORUS 3.8 mg/dL (2.5-4.9); POTASSIUM 3.6 mmol/L (3.5-5.1)
--- NOTE | 2017-06-10 10:45 | NUR ---
PT RESTING QUIETLY. DENIES PAIN OR DISCOMFORT. NO S/S OF DISTRESS, SOB. SAFETY MEASURES IN PLACED. WILL CONTINUE TO MONITOR.N
[2017-06-10 12:00] VITALS: BP 96/62
[2017-06-10] MEDS: ACETAMINOPHEN 325 MG TAB PO PRN (12:57)
--- NOTE | 2017-06-10 13:20 | NUR ---
DC'ED PT'S RIGHT AC IV DUE TO INFILTRATION AND LEAKAGE. CATH TIP INTACT. NO BLEEDING NOTED. INSERT NEW IV ON LEFT WRIST, 22G. PT TOLERATED THE PROCEDURE WELL. NO S/S OF DISTRESS, OR SOB. IN INFUSING, NO SWELLING OR REDNESS NOTED ON NEW IV. WILL CONTINUE TO MONITOR.
--- NOTE | 2017-06-10 15:00 | NUR ---
PT RESTING QUIETLY. NO S/S OF DISTRESS, SOB, RESTLESSNESS. DENIES NEEDS AT THIS TIME. SAFETY MEASURES IN PLACED. WILL CONTINUE TO MONITOR.
[2017-06-10 16:00] VITALS: BP 119/66
--- NOTE | 2017-06-10 18:11 | NUR ---
DR WEST TO BEDSIDE WITH FRENCH SPEAKING RN JUANY, DISCHARGE PLAN DISCUSSED, ALL PT'S QUESTIONS ASKED AND ANSWERED BY DR WEST, PT VERBALIZED FULL UNDERSTANDING, AWAITING COMPLETION OF DISCHARGE INSTRUCTION BEFORE DISCHARGE.
[2017-06-10] MEDS ORDERED: WARFARIN 2 MG TAB PO SCH (18:30)
[2017-06-10] MEDS ORDERED: ASCO-166 PO (19:05)
[2017-06-10] MEDS ORDERED: LEVO750T2 PO ×2 (19:05→19:23)
[2017-06-10] MEDS ORDERED: ACET-1182 PO (19:05)
[2017-06-10] MEDS ORDERED: FERR-18 PO (19:05)
[2017-06-10] MEDS ORDERED: WARF2TAB1 PO (19:05)
[2017-06-10] MEDS ORDERED: CLIN300C2 PO (19:08)
[2017-06-10] MEDS ORDERED: LACT1.4C PO (19:14)
--- NOTE | 2017-06-10 19:43 | NUR ---
ENDORSED CARE TO PM NURSE FOR CONTINUITY OF CARE. PT IN STABLE CONDITION.
--- NOTE | 2017-06-10 19:44 | NUR ---
RECEIVED REPORT FROM DAY RN FOR CONTINUITY OF CARE. PATIENT IS ALERT AND ORIENTED X4, DISCUSSED PLAN OF CARE WITH PATENT. NO RESPIRATORY DISTRESS NOTED ON ROOM AIR. PATIENT DENIES PAIN. VITAL SIGNS STABLE. IV PATENT AND INFUSING FLUIDS WELL. SAFETY PRECAUTIONS ENFORCED, FAMILY MEMBER AT BEDSIDE. WILL CONTINUE TO MONITOR.
[2017-06-10 20:00] VITALS: BP 108/56
[2017-06-10 20:03] VITALS: BP 101/61
--- NOTE | 2017-06-10 21:00 | NUR ---
IV REMOVED WITH CANNULA INTACT, TELE MONITOR REMOVED. PATIENT CHANGED INTO CLOTHES AND COLLECTED ALL BELONGINGS. DISCHARGE INSTRUCTIONS GIVEN AND ALL QUESTIONS ANSWERED. PATIENT IN STABLE CONDITION, TAKEN OUT TO FRONT LOBBY IN WHEELCHAIR.
[2017-06-14 11:33] LABS: FOLIC ACID 12.9 ng/mL (>3.0)
== END 2017-06-10 21:00 | disposition home or self-care (01) | DRG 720 ==
LOC: MTU 23:05
PROVIDERS: ADMIT Obstetrics & Gynecology; ATTEND Family Medicine
DX: A41.9 Sepsis, unspecified organism (principal); J90 Pleural effusion, not elsewhere classified; C49.9 Malignant neoplasm of connective and soft tissue, unspecified; E66.01 Morbid (severe) obesity due to excess calories; B37.3 Candidiasis of vulva and vagina; D25.9 Leiomyoma of uterus, unspecified; J98.11 Atelectasis; D64.9 Anemia, unspecified; R65.20 Severe sepsis without septic shock; N63 Unspecified lump in breast; M54.5 Low back pain; Z79.899 Other long term (current) drug therapy; Z68.35 Body mass index [BMI] 35.0-35.9, adult; Z79.2 Long term (current) use of antibiotics; Z91.19 Patient's noncompliance with other medical treatment and regimen; Z86.711 Personal history of pulmonary embolism; Z86.718 Personal history of other venous thrombosis and embolism
CPT/HCPCS: 36415; 71010; 76641; 80048; 80305; 81001; 81025; 82140; 82150; 82607; 82728; 82746; 83036; 83540; 83605; 83690; 83735; 83880; 84100; 84439; 84443; 84484; 85025; 85045; 85610; 85730; 86886; 86900; 86901; 87040; 87081; 87086; 93005; 94640; C9113; J1644; J2270; J2405; J2543; J2916; J3480; J3490; J7030; J7060; J7120; J7620; Q0092; Q9967